=== PATIENT | male | born 1965 | race African-American/Black ===

== ENCOUNTER 2018-05-25 04:38 | Observation (INO) | payer OTHER ==
[~2018-05-25] VITALS: Ht 198.1 cm; Wt 112.5 kg
[2018-05-25] MEDS ORDERED: NPH,100V5 SQ (05:05)
[2018-05-25] MEDS ORDERED: METF-649 PO (05:05)
[2018-05-25] MEDS ORDERED: PIOG15TA22 PO (05:05)
[2018-05-25] MEDS ORDERED: LISINOPRIL PO (05:05)
[2018-05-25] MEDS ORDERED: SIMVASTATIN PO (05:05)
[2018-05-25] MEDS ORDERED: PIOGLITAZONE PO (05:05)
[2018-05-25 06:35] LABS: ALBUMIN 3.2 g/dL (3.4-5.0); ANION GAP 6 mmol/L (5-15); CALCIUM 8.6 mg/dL (8.5-10.1); CHLORIDE 105 mmol/L (98-107); CREATININE 1.13 mg/dL (0.7-1.3)
[2018-05-25 06:41] LABS: MEAN CORPUSCULAR HEMOGLOBIN 26.3 pg (27.5-34.5); MEAN CORPUSCULAR HGB CONC 32.5 g/dL (33.2-36.2); MEAN PLATELET VOLUME 8.8 fL (7.4-10.4); PLATELET COUNT 248 x10^3/uL (130-400); RED BLOOD COUNT 4.81 x10^6/uL (4.38-5.82); RED CELL DISTRIBUTION WIDTH 14.7 % (9.4-14.8)
[2018-05-25 07:18] LABS: BASOPHILS # (AUTO) 0.05 x10^3/uL (0-0.1); BASOPHILS % (AUTO) 1 % (0-1); EOSINOPHILS % (AUTO) 1 % (1-7); LYMPHOCYTES % (AUTO) 36 % (22-44); MD SCAN; MONOCYTES # (AUTO) 0.65 x10^3/uL (0.2-0.8); MONOCYTES % (AUTO) 9 % (2-9); NEUTROPHILS # (AUTO) 3.86 x10^3/uL (1.8-6.8); NEUTROPHILS % (AUTO) 53 % (42-75)
[2018-05-25] MEDS ORDERED: OMNIPAQUE 350 MG/ML, 100ML BOTTLE ONE (08:14)
[2018-05-25 09:45] VITALS: BP 138/76
[2018-05-25] MEDS ORDERED: ONDANSETRON ODT 4 MG PO PRN (11:00)
[2018-05-25] MEDS: INSULIN LISPRO 100 UNITS/ML, PEN SQ-INSULIN SCH ×3 (11:00→21:31)
[2018-05-25] MEDS ORDERED: DEXTROSE 4 GM TAB.CHEW PO PRN (11:00)
[2018-05-25] MEDS ORDERED: POLYETHYLENE GLYCOL 17 GM PACKET PO PRN (11:00)
[2018-05-25] MEDS ORDERED: ACETAMINOPHEN 325 MG TABLET PO PRN (11:00)
[2018-05-25] MEDS ORDERED: ENALAPRILAT 1.25 MG/ML, 2ML IVPush PRN (11:00)
[2018-05-25] MEDS ORDERED: hydrALAzine 20 MG/ML, 1ML IVPush PRN (11:00)
[2018-05-25] MEDS ORDERED: DEXTROSE 50%, 50ML SYRINGE IVPush PRN (11:00)
[2018-05-25] MEDS ORDERED: GLUCAGON 1 MG IM PRN (11:00)
[2018-05-25] MEDS ORDERED: BISACODYL 10 MG SUPP PR PRN (11:00)
[2018-05-25] MEDS ORDERED: DOCUSATE 100 MG CAPSULE PO PRN (11:00)
[2018-05-25 11:30] LABS: INTERNATIONAL NORMALIZED RATIO 1.03 (0.93-1.1); PROTHROMBIN TIME 10.6 Seconds (9.6-11.5)
[2018-05-25 11:35] LABS: ALANINE AMINOTRANSFERASE 29 U/L (12-78); ALBUMIN 3.3 g/dL (3.4-5.0); BILIRUBIN, DIRECT < 0.1 mg/dL (0.1-0.2)
[2018-05-25 11:37] LABS: ALKALINE PHOSPHATASE 74 U/L (45-117); BILIRUBIN,INDIRECT 0.1 mg/dL (0.0-2.0); BILIRUBIN,TOTAL 0.2 mg/dL (0.2-1.0); TOTAL PROTEIN 6.7 g/dL (6.4-8.2)
[2018-05-25 12:26] VITALS: BP 118/69
[2018-05-25] MEDS: APIXABAN 5 MG TABLET PO SCH ×2 (12:51→21:24)
[2018-05-25 12:57] LABS: HCT (SEDRATE) 38.9 % (39.2-51.8)
[2018-05-25 19:51] VITALS: BP 139/68
[2018-05-25] MEDS: SODIUM CHLORIDE FLUSH 10ML SYR IVF SCH (21:24)
[2018-05-26 02:00] VITALS: BP 122/73
[2018-05-26 06:46] LABS: CHOL/HDL RATIO 2.8; LDL/HDL RATIO 1.5 (0.5-3.0)
[2018-05-26 06:49] VITALS: BP 136/72
[2018-05-26] MEDS: INSULIN LISPRO 100 UNITS/ML, PEN SQ-INSULIN SCH ×2 (07:00→12:35)
[2018-05-26] MEDS: SODIUM CHLORIDE FLUSH 10ML SYR IVF SCH (09:00)
[2018-05-26] MEDS ORDERED: PIOGLITAZONE 15 MG TABLET PO SCH (09:00)
[2018-05-26] MEDS: APIXABAN 5 MG TABLET PO SCH (10:01)
[2018-05-26 12:19] VITALS: BP 141/83
[2018-05-26] MEDS ORDERED: APIX5TAB PO (12:48)
[2018-06-01] MEDS ORDERED: APIXABAN 5 MG TABLET PO SCH (09:00)
== END 2018-05-26 14:40 | disposition home or self-care (01) ==
LOC: EDBD 04:38 → ED 08:42 → INTOOBSV 08:49 → EDIP 08:49 → 4WST 09:40 → DCLOUNGE 05-26 14:31
PROVIDERS: ADMIT Internal Medicine; ATTEND Internal Medicine
DX: I26.99 Other pulmonary embolism without acute cor pulmonale (principal); E11.40 Type 2 diabetes mellitus with diabetic neuropathy, unspecified; E11.65 Type 2 diabetes mellitus with hyperglycemia; R91.1 Solitary pulmonary nodule; F12.90 Cannabis use, unspecified, uncomplicated; I10 Essential (primary) hypertension; I07.1 Rheumatic tricuspid insufficiency; Z79.4 Long term (current) use of insulin; Z83.3 Family history of diabetes mellitus
CPT/HCPCS: 36415; 71046; 71260; 80048; 80061; 80076; 82040; 82962; 83880; 85025; 85610; 85651; 85730; 93306; 93970; 96372; 99285; G0378; J1815; Q9967